=== PATIENT | male | born 1970 | race Caucasian/White ===

== ENCOUNTER 2023-05-13 09:42 | Emergency (ER) | payer OTHER ==
[~2023-05-13] VITALS: Ht 172.7 cm; Wt 88.6 kg
[2023-05-13] MEDS ORDERED: KETO15IN5 IM (09:50)
[2023-05-13] MEDS ORDERED: METH-1165 PO (09:50)
[2023-05-13 10:39] LABS: BASO % 0.5 % (0.0-1.0); EOS # 0.1 10^3/uL (0.0-0.5); EOS % 1.6 % (0.0-3.0); HEMATOCRIT 43.5 % (42.0-52.0); HEMOGLOBIN 14.8 g/dl (13.5-17.5); LYMPH # 2.1 10^3/uL (1.5-5.0); LYMPH % 25.6 % (24.0-44.0); MEAN CORPUSCULAR VOLUME 91.2 fl (80.0-96.0); MONO # 0.4 10^3/uL (0.0-0.8); MONO % 5.4 % (2.0-8.0); NEUTROPHILS # 5.3 10^3/uL (1.5-8.5); NEUTROPHILS % 66.5 % (36.0-66.0); PLATELET COUNT, AUTOMATED 282 10^3/uL (150-450); RED BLOOD COUNT 4.77 10^6/uL (4.30-6.10)
[2023-05-13 10:56] LABS: BLOOD UREA NITROGEN 13 MG/DL (9-23); CALCIUM LEVEL 9.3 MG/DL (8.5-10.1); CARBON DIOXIDE LEVEL 31 MMOL/L (20-31); CHLORIDE LEVEL 105 MMOL/L (98-107); GLOMERULAR FILTRATION RATE > 60.0 (>56); GLUCOSE, FASTING 112 MG/DL (60-100); POTASSIUM SERUM 4.1 MMOL/L (3.5-5.1); SODIUM LEVEL 143 MMOL/L (136-145)
[2023-05-13] MEDS ORDERED: PERCOCET 5MG/325MG TAB PO ONE (11:45)
[2023-05-13] MEDS ORDERED: ISOVUE-370 76% 100ML VIAL As Ordered ONE (11:57)
[2023-05-13] MEDS ORDERED: NS 1,000 ML IV ONE (12:05)
[2023-05-13 13:49] VITALS: BP 114/68; TEMP 97.7; O2SAT 97
== END 2023-05-13 13:59 | disposition home or self-care (01) ==
LOC: M ED 09:42
DX: M54.50 Low back pain, unspecified (principal); M89.251 Other disorders of bone development and growth, right femur; R19.5 Other fecal abnormalities; N50.3 Cyst of epididymis; Z88.5 Allergy status to narcotic agent
CPT/HCPCS: 74177; 76870; 80048; 81001; 85025; 93976; 96360; 96361; 99284; Q9967